=== PATIENT | male | born 1970 | race Caucasian/White ===

== ENCOUNTER 2019-12-05 17:47 | Inpatient (IN) ==
[2019-12-05] MEDS ORDERED: ONDANSETRON 4 MG/2 ML VIAL IV STA (18:21)
[2019-12-05] MEDS ORDERED: KETOROLAC 30 MG/1 ML VIAL IV STA (18:21)
[2019-12-05 18:32] LABS: Basophils # 0.1 10*3/uL (0.0-0.2); Basophils % 0.4 % (0.0-0.8); Eosinophils # 0.3 10*3/uL (0.0-0.87); Eosinophils % 2.1 % (0.00-10.9); Hematocrit 45.1 VOL% (42.0-52.0); Hemoglobin 15.4 GM/DL (14.0-18.0); Immature Granulocytes % 0.4 %; Immature Granulocytes Absolute 0.05 #; Lymphocytes # 2.7 10*3/uL (1.4-4.0); Lymphocytes % 19.5 % (21.2-54.2); Mean Corpuscular HGB Conc 34.1 GM/DL (32-36); Mean Corpuscular Volume 91.3 FL (87-102); Mean Platelet Volume 10.6 FL (9.6-12.0); Monocytes % 10.1 % (1.7-12.7); Neutrophils % 67.5 % (38.7-73.9); Platelet Count 254 T/CUMM (130-400); Red Blood Count 4.94 MC/CUMM (3.8-5.5); Red Cell Distribution Width 12.1 % (9.3-17.3); White Blood Count 13.6 T/CUMM (4-12)
[2019-12-05] MEDS ORDERED: hydrALAZINE 20 MG/1 ML VIAL IV STA (18:33)
[2019-12-05] MEDS ORDERED: hydrALAZINE 20 MG/1 ML VIAL ONE (18:34)
[2019-12-05 18:47] LABS: INR 1.1; PT Patient Result 11.3 SECS (9.8-11.9)
[2019-12-05 18:55] LABS: Alanine Aminotransferase 25 U/L (16-61); Albumin 4.1 G/DL (3.4-5.0); Alkaline Phosphatase 90 U/L (45-117); Aspartate Amino Transferase 15 U/L (0-37); Blood Urea Nitrogen 20 MG/DL (7-18); Estimated Glom Filtration Rate 94 ML/MIN; Ferritin 383.2 ng/ml (26-388); Glucose 128 MG/DL (74-106); Total Protein 8.7 G/DL (6.4-8.3); Troponin I < 0.015 NG/ML (0.00-0.045)
[2019-12-05] MEDS ORDERED: SODIUM CHLORIDE 0.9% 1,000 ML IV STA (18:59)
[2019-12-05] MEDS ORDERED: AZITHROMYCIN INJ 500 MG in SODIUM CHLORIDE 0.9% 250 ML IV STA (19:33)
[2019-12-05] MEDS ORDERED: methylPREDNISolone SOD SUC 125 MG/2 ML VIAL IV STA (19:33)
[2019-12-05] MEDS ORDERED: ENOXAPARIN 120 MG/0.8 ML SYRINGE SUBCUT STA (20:15)
[2019-12-05] MEDS ORDERED: HYDROmorphone 2 MG/1 ML VIAL IV PRN (21:45)
[2019-12-05] MEDS ORDERED: ACETAMINOPHEN 325 MG TABLET PO PRN (21:58)
[2019-12-05] MEDS ORDERED: ONDANSETRON 4 MG/2 ML VIAL IV PRN (21:58)
[2019-12-05] MEDS ORDERED: DOCUSATE SODIUM 100 MG CAPSULE PO PRN (21:58)
[2019-12-05] MEDS ORDERED: hydrALAZINE 20 MG/1 ML VIAL IV PRN (21:58)
[2019-12-05] MEDS: cefTRIAXone 1,000 MG in SODIUM CHLORIDE 0.9% 100 ML IV SCH (22:05)
[2019-12-05] MEDS ORDERED: POTASSIUM CHLORIDE 20 MEQ TABLET PO PRN (22:33)
[2019-12-05] MEDS ORDERED: MAGNESIUM SULF RIDER 4 GM in PREMIX 1 EACH IV PRN (22:33)
[2019-12-05] MEDS ORDERED: MAGNESIUM SULF RIDER 2 GM in PREMIX 1 EACH IV PRN (22:33)
[2019-12-05 22:36] LABS: Apearance,Urine CLEAR (Clear); Bilirubin,Urine Negative (Negative); Blood, Urine Negative (Negative); Glucose,Urine (UA) Negative (Negative); Ketones,Urine 20 mg/dL (Negative); Mucus,Urine Occasional /LPF (Occasional); Nitrite,Urine Negative (Negative); Protein,Urine Negative; RBC,Urine 2 /HPF (0-4); Urine Color Yellow (Yellow); Urine Specific Gravity 1.044 (1.001-1.035); WBC,Urine <1 /HPF (0-6)
[2019-12-05 22:55] LABS: Barbiturates Screen,Urine Negative (Negative); Benzodiazepines Screen,Urine Negative (Negative); Cannabinoid Screen,Urine Negative (Negative); Opiate Screen,Urine Positive (Negative); Phencyclidine Screen,Urine Negative (Negative)
[2019-12-06 06:16] LABS: Basophils % 0.1 % (0.0-0.8); Hematocrit 39.8 VOL% (42.0-52.0); Hemoglobin 14.1 GM/DL (14.0-18.0); Immature Granulocytes % 0.4 %; Immature Granulocytes Absolute 0.03 #; Lymphocytes # 0.5 10*3/uL (1.4-4.0); Lymphocytes % 6.5 % (21.2-54.2); Mean Corpuscular HGB Conc 35.4 GM/DL (32-36); Mean Corpuscular Volume 88.1 FL (87-102); Mean Platelet Volume 10.8 FL (9.6-12.0); Monocytes % 1.5 % (1.7-12.7); Neutrophils % 91.5 % (38.7-73.9); Platelet Count 219 T/CUMM (130-400); Red Blood Count 4.52 MC/CUMM (3.8-5.5); Red Cell Distribution Width 11.9 % (9.3-17.3); White Blood Count 8.3 T/CUMM (4-12)
[2019-12-06 06:35] LABS: Calcium 8.7 MG/DL (8.5-10.1)
[2019-12-06 06:46] LABS: Band Neutrophils 1 % (0-10); Lymphocytes 5 % (20-55); Platelet Estimate Adequate; Segmented Neutrophils 90 % (50-85); Total Cells Counted 100
[2019-12-06] MEDS ORDERED: ENOXAPARIN 120 MG/0.8 ML SYRINGE SUBCUT SCH (09:00)
[2019-12-06] MEDS: AZITHROMYCIN 250 MG TABLET PO SCH (09:27)
[2019-12-06] MEDS: RIVAROXABAN 15 MG TABLET PO SCH ×2 (09:27→17:28)
[2019-12-06] MEDS: amLODIPine 5 MG TABLET PO SCH (09:27)
[2019-12-06] MEDS ORDERED: AZITHROMYCIN INJ 500 MG in SODIUM CHLORIDE 0.9% 250 ML IV SCH (20:00)
[2019-12-06] MEDS: cefTRIAXone 1,000 MG in SODIUM CHLORIDE 0.9% 100 ML IV SCH (21:52)
[2019-12-06] MEDS: ROSUVASTATIN 10 MG TABLET PO SCH (22:01)
[2019-12-07 06:31] LABS: Basophils % 0.2 % (0.0-0.8); Eosinophils # 0.1 10*3/uL (0.0-0.87); Eosinophils % 0.9 % (0.00-10.9); Hematocrit 38.6 VOL% (42.0-52.0); Hemoglobin 13.2 GM/DL (14.0-18.0); Immature Granulocytes % 0.4 %; Immature Granulocytes Absolute 0.04 #; Lymphocytes # 1.4 10*3/uL (1.4-4.0); Lymphocytes % 13.6 % (21.2-54.2); Mean Corpuscular HGB Conc 34.2 GM/DL (32-36); Mean Corpuscular Volume 89.6 FL (87-102); Mean Platelet Volume 11.1 FL (9.6-12.0); Monocytes % 7.1 % (1.7-12.7); Neutrophils % 77.8 % (38.7-73.9); Platelet Count 216 T/CUMM (130-400); Red Blood Count 4.31 MC/CUMM (3.8-5.5); Red Cell Distribution Width 12.2 % (9.3-17.3); White Blood Count 10.1 T/CUMM (4-12)
[2019-12-07 07:14] LABS: Bilirubin,Total 1.6 MG/DL (0.2-1.0); Calcium 8.6 MG/DL (8.5-10.1); Osmolality,Calculated 284.3 MOS/KG (273-304); Total Protein 7.2 G/DL (6.4-8.3)
[2019-12-07] MEDS: RIVAROXABAN 15 MG TABLET PO SCH ×2 (07:40→16:28)
[2019-12-07] MEDS: AZITHROMYCIN 250 MG TABLET PO SCH (08:02)
[2019-12-07] MEDS: amLODIPine 5 MG TABLET PO SCH (08:02)
[2019-12-07] MEDS: PANTOPRAZOLE 40 MG TABLET PO SCH (08:02)
[2019-12-07] MEDS: ROSUVASTATIN 10 MG TABLET PO SCH (21:02)
[2019-12-07] MEDS: cefTRIAXone 1,000 MG in SODIUM CHLORIDE 0.9% 100 ML IV SCH (21:26)
[2019-12-08 08:02] VITALS: BP 137/87
[2019-12-08] MEDS: AZITHROMYCIN 250 MG TABLET PO SCH (08:29)
[2019-12-08] MEDS: amLODIPine 5 MG TABLET PO SCH (08:29)
[2019-12-08] MEDS: RIVAROXABAN 15 MG TABLET PO SCH (08:29)
[2019-12-08] MEDS: PANTOPRAZOLE 40 MG TABLET PO SCH (08:29)
== END 2019-12-08 11:39 | disposition home or self-care (01) | DRG 175 ==
LOC: N.ED 17:47 → N.EDINP 21:44 → N.2E 22:43
PROVIDERS: ADMIT Family Medicine; ATTEND Family Medicine